=== PATIENT | female | born 1965 | race Caucasian/White ===

== ENCOUNTER 2016-09-23 19:42 | Emergency (ER) | payer MEDICAID ==
[~2016-09-23] VITALS: Ht 162.6 cm; Wt 87.1 kg
[2016-09-23 19:42] VITALS: BP_SYST 118
[~2016-09-23 19:42] MED LIST: ATEN-41; ESCI20TA
[2016-09-23] MEDS ORDERED: NACL 0.9% 1,000 ML IV ONE (20:15)
[2016-09-23] MEDS ORDERED: ONDANSETRON HCL 4 MG/2 ML VIAL IVP ONE (20:15)
[2016-09-23] MEDS ORDERED: MORPHINE 2 MG/ML INJ. SYRINGE IVP ONE (20:15)
[2016-09-23 20:39] LABS: BASOPHILS % (AUTO) 0.1 % (0.0-2.0); EOSINOPHILS # (AUTO) 0.4 K/uL (0.0-0.4); EOSINOPHILS % (AUTO) 2.5 % (0.0-4.0); HEMATOCRIT 28.7 % (36-48); HEMOGLOBIN 9.5 g/dL (12.0-16.0); LYMPHOCYTES # (AUTO) 2.2 K/uL (1.0-5.5); LYMPHOCYTES % (AUTO) 13.6 % (20.5-51.5); MEAN CORPUSCULAR HEMOGLOBIN 29 pg (27-31); MEAN CORPUSCULAR HGB CONC 33 % (32-36); MEAN CORPUSCULAR VOLUME 87 fL (79.0-98.0); MONOCYTES # (AUTO) 0.9 K/uL (0.0-1.0); MONOCYTES % (AUTO) 5.6 % (1.7-9.3); NEUTROPHILS # (AUTO) 12.9 K/uL (1.8-7.7); PLATELET COUNT (AUTO) 303 K/uL (130-430); RED BLOOD CELL COUNT(AUTO) 3.31 MIL/uL (4.2-6.2); RED CELL DISTRIBUTION WIDTH 14.7 % (9.0-15.0); WHITE BLOOD COUNT (AUTO) 16.4 K/uL (4.8-10.8)
[2016-09-23 20:49] LABS: CALCIUM 9.1 mg/dL (8.4-11.0); CREATININE 1.15 mg/dL (0.55-1.30); POTASSIUM 3.6 mmol/L (3.5-5.1)
[2016-09-23 20:54] LABS: TOTAL BILIRUBIN 0.5 mg/dL (0.0-1.0); TOTAL PROTEIN, SERUM 8.4 g/dL (6.4-8.3)
[2016-09-23 21:10] LABS: NEUTROPHILS % (AUTO) 78.2 % (40.0-70.0)
[2016-09-23 22:10] VITALS: BP_SYST 118
== END 2016-09-23 22:10 | disposition home or self-care (01) ==
LOC: SED 19:42
DX: K52.9 Noninfective gastroenteritis and colitis, unspecified (principal); R21 Rash and other nonspecific skin eruption; I10 Essential (primary) hypertension; Z79.899 Other long term (current) drug therapy
CPT/HCPCS: 36415; 74176; 80053; 85025; 96361; 96374; 96375; 99285; J2270; J2405; J7030

== ENCOUNTER 2016-10-02 19:16 | Emergency (ER) | payer MEDICAID ==
[~2016-10-02] VITALS: Ht 162.6 cm; Wt 88.0 kg
[2016-10-02 19:22] VITALS: BP_SYST 130
[2016-10-02 19:54] LABS: BILIRUBIN,URINE NEGATIVE (NEGATIVE); BLOOD, URINE 3+ (NEGATIVE); COLOR,URINE YELLOW (YELLOW); GLUCOSE,URINE NEGATIVE (NEGATIVE); KETONES,URINE NEGATIVE (NEGATIVE); LEUKOCYTE ESTERASE ,URINE TRACE (NEGATIVE); NITRITE, URINE NEGATIVE (NEGATIVE); PROTEIN URINE 3+ (NEGATIVE); UROBILINOGEN,URINE 0.2 (0.2-1.0)
--- NOTE | 2016-10-02 20:11 | NUR ---
Called pt to be placed in bed and no answer
[2016-10-02 20:12] LABS: CLARITY/URINE HAZY (CLEAR)
[2016-10-02 20:14] LABS: BACTERIA,URINE FEW /HPF (None Seen); HYALINE CASTS, URINE 0-10 /LPF (None Seen); RBC,URINE NONE SEEN /HPF (0-3)
[2016-10-02 20:15] LABS: MUCUS,URINE None Seen /LPF (None Seen); OTHER CASTS, URINE MIXED CELL CASTS 1+ /LPF (None Seen)
--- NOTE | 2016-10-02 20:47 | NUR ---
Called pt to be placed in bed but no answer
--- NOTE | 2016-10-02 21:01 | NUR ---
Patient left without being seen. Called pt to be placed in bed and no answer.
== END 2016-10-02 21:01 | disposition left against medical advice (07) ==
LOC: SED 19:16
DX: R06.02 Shortness of breath (principal); M79.89 Other specified soft tissue disorders; Z53.21 Procedure and treatment not carried out due to patient leaving prior to being seen by health care provider
CPT/HCPCS: 81000-TC

== ENCOUNTER 2016-10-04 09:23 | Inpatient (IN) | payer MEDICAID ==
[~2016-10-04] VITALS: Ht 160 cm; Wt 88.0 kg
[2016-10-04 09:23] VITALS: BP_SYST 114
[2016-10-04] MEDS ORDERED: NACL 0.9% 1,000 ML IV ONE (09:57)
[2016-10-04] MEDS ORDERED: NS 1000 ML BAG IV ONE (10:00)
[2016-10-04 10:18] LABS: BILIRUBIN,URINE NEGATIVE (NEGATIVE); BLOOD, URINE 3+ (NEGATIVE); CLARITY/URINE CLEAR (CLEAR); COLOR,URINE YELLOW (YELLOW); GLUCOSE,URINE NEGATIVE (NEGATIVE); KETONES,URINE NEGATIVE (NEGATIVE); LEUKOCYTE ESTERASE ,URINE NEGATIVE (NEGATIVE); NITRITE, URINE NEGATIVE (NEGATIVE); PH,URINE 5.5 (5.0-8.0); PROTEIN URINE 1+ (NEGATIVE); UROBILINOGEN,URINE 0.2 (0.2-1.0)
[2016-10-04 10:24] LABS: BACTERIA,URINE FEW /HPF (None Seen); MUCUS,URINE None Seen /LPF (None Seen); WBC,URINE 0-3 /HPF (0-3)
[2016-10-04 10:33] LABS: BASOPHILS % (AUTO) 0.3 % (0.0-2.0); EOSINOPHILS # (AUTO) 0.2 K/uL (0.0-0.4); EOSINOPHILS % (AUTO) 1.2 % (0.0-4.0); HEMATOCRIT 23.8 % (36-48); HEMOGLOBIN 7.7 g/dL (12.0-16.0); LYMPHOCYTES # (AUTO) 2.6 K/uL (1.0-5.5); LYMPHOCYTES % (AUTO) 18.4 % (20.5-51.5); MEAN CORPUSCULAR HEMOGLOBIN 27 pg (27-31); MEAN CORPUSCULAR HGB CONC 32 % (32-36); MEAN CORPUSCULAR VOLUME 84 fL (79.0-98.0); MONOCYTES # (AUTO) 0.7 K/uL (0.0-1.0); NEUTROPHILS # (AUTO) 10.4 K/uL (1.8-7.7); NEUTROPHILS % (AUTO) 75.1 % (40.0-70.0); PLATELET COUNT (AUTO) 523 K/uL (130-430); RED BLOOD CELL COUNT(AUTO) 2.82 MIL/uL (4.2-6.2); RED CELL DISTRIBUTION WIDTH 15.1 % (9.0-15.0); WHITE BLOOD COUNT (AUTO) 13.9 K/uL (4.8-10.8)
[2016-10-04 10:34] LABS: CALCIUM 9.4 mg/dL (8.4-11.0); CREATININE 1.1 mg/dL (0.55-1.30); POTASSIUM 3.7 mmol/L (3.5-5.1)
[2016-10-04 10:38] LABS: ALBUMIN 2.4 g/dL (3.4-4.8); INR 1.1 (0.8-1.2); PHOSPHORUS 4.8 mg/dL (2.7-4.5); PROTHROMBIN TIME 11.4 SECS (9.5-12.5); TOTAL BILIRUBIN 0.4 mg/dL (0.0-1.0)
[2016-10-04 11:10] LABS: FREE T4 (FREE THYROXINE) 1.4 ng/dl (0.8-1.5); THYROID STIMULATING HORMONE 1.67 uIu/mL (0.36-3.74)
[2016-10-04 12:00] LABS: ERYTHROCYTE SEDIMENTATION RATE > 140 MM/HR (0-20)
[2016-10-04] MEDS ORDERED: ATEN-41 PO (12:06)
[2016-10-04] MEDS ORDERED: METR500T PO (12:06)
[2016-10-04] MEDS ORDERED: MESA800T PO (12:06)
[2016-10-04] MEDS ORDERED: FURO-150 PO (12:06)
[2016-10-04] MEDS ORDERED: PRED10TA PO (12:06)
[2016-10-04] MEDS ORDERED: AZU500 PO (12:06)
[2016-10-04] MEDS: NACL 0.9% 1,000 ML IV SCH ×2 (12:08→23:25)
[2016-10-04] MEDS ORDERED: POTASSIUM CHLORIDE 20 MEQ TAB.PRT.SR PO PRN (12:15)
[2016-10-04] MEDS ORDERED: BISACODYL 10 MG/SUPPOSITORY RC PRN (12:15)
[2016-10-04] MEDS ORDERED: LORazepam 2 MG/ML VIAL IVP PRN (12:15)
[2016-10-04] MEDS ORDERED: ONDANSETRON HCL 4 MG/2 ML VIAL IVP PRN (12:15)
[2016-10-04] MEDS ORDERED: ZOLPIDEM TARTRATE 5 MG TABLET PO PRN (12:15)
[2016-10-04] MEDS ORDERED: MORPHINE 2 MG/ML INJ. SYRINGE IVP PRN (12:15)
[2016-10-04] MEDS ORDERED: SIMETHICONE 80 MG TAB.CHEW PO PRN (12:15)
[2016-10-04] MEDS ORDERED: cefTRIAXone 2 GM VIAL ONE (12:28)
[2016-10-04] MEDS ORDERED: FAMOTIDINE PF 20 MG/2 ML VIAL IVP ONE (12:45)
[2016-10-04 12:46] VITALS: BP_SYST 134
[2016-10-04 13:06] VITALS: BP_SYST 134
[2016-10-04] MEDS: ACETAMINOPHEN 325 MG TABLET PO PRN ×2 (14:37→20:16)
[2016-10-04 16:10] VITALS: BP_SYST 122
[2016-10-04] MEDS ORDERED: COMMUNICATION ORDER XX ONE (16:45)
[2016-10-04 20:00] VITALS: BP_SYST 127
[2016-10-04] MEDS: ATENOLOL 25 MG TABLET(TENORMIN) PO SCH (20:15)
[2016-10-04] MEDS: DOCUSATE SODIUM 100 MG CAPSULE PO SCH (20:15)
[2016-10-04] MEDS: MESALAMINE 800 MG PO SCH (20:15)
[2016-10-04] MEDS: sulfASALAZINE 500 MG TABLET (AZULFIDINE) PO SCH (20:16)
[2016-10-05 01:10] VITALS: BP_SYST 131
[2016-10-05] MEDS: ACETAMINOPHEN 325 MG TABLET PO PRN (04:37)
[2016-10-05 05:04] VITALS: BP_SYST 124
[2016-10-05 08:00] VITALS: BP_SYST 114
[2016-10-05 08:03] LABS: CHOLESTEROL 91 mg/dL (<200); HDL CHOLESTEROL 29 mg/dL (>55); LDL CHOLESTEROL 58 mg/dL (<100); TRIGLYCERIDES 58 mg/dL (30-150)
[2016-10-05] MEDS: DOCUSATE SODIUM 100 MG CAPSULE PO SCH ×2 (09:00→20:46)
[2016-10-05] MEDS: FUROSEMIDE 20 MG TABLET PO SCH (09:47)
[2016-10-05] MEDS: PREDNISONE 10 MG TABLET PO SCH (09:48)
[2016-10-05] MEDS: OMEPRAZOLE 20 MG CAPSULE.DR (PriLOSEC) PO SCH (09:48)
[2016-10-05] MEDS: FAMOTIDINE 20 MG TABLET PO SCH (09:48)
[2016-10-05] MEDS: MESALAMINE 800 MG PO SCH ×2 (09:48→20:50)
[2016-10-05] MEDS: sulfASALAZINE 500 MG TABLET (AZULFIDINE) PO SCH ×2 (09:48→20:45)
[2016-10-05] MEDS: ATENOLOL 25 MG TABLET(TENORMIN) PO SCH ×2 (09:49→20:46)
[2016-10-05 11:31] VITALS: BP_SYST 116
[2016-10-05] MEDS: cefTRIAXone 1 GM in D5W 50 ML IV SCH (12:30)
[2016-10-05] MEDS: VANCOMYCIN HCL 750 MG in NS 250 ML IV SCH (15:18)
[2016-10-05] MEDS: NACL 0.9% 1,000 ML IV SCH (15:19)
[2016-10-05 15:41] VITALS: BP_SYST 127
[2016-10-05 19:50] VITALS: BP_SYST 119
[2016-10-06] VITALS (7 sets, daily range): BP systolic 116–138
[2016-10-06] MEDS: VANCOMYCIN HCL 750 MG in NS 250 ML IV SCH ×2 (02:55→16:19)
[2016-10-06 06:45] LABS: BASOPHILS # (AUTO) 0.1 K/uL (0.0-0.2); BASOPHILS % (AUTO) 0.5 % (0.0-2.0); CALCIUM 8.9 mg/dL (8.4-11.0); CREATININE 1.02 mg/dL (0.55-1.30); EOSINOPHILS # (AUTO) 0.2 K/uL (0.0-0.4); EOSINOPHILS % (AUTO) 1.3 % (0.0-4.0); LYMPHOCYTES # (AUTO) 2.8 K/uL (1.0-5.5); LYMPHOCYTES % (AUTO) 23.6 % (20.5-51.5); MEAN CORPUSCULAR HEMOGLOBIN 27 pg (27-31); MEAN CORPUSCULAR HGB CONC 32 % (32-36); MEAN CORPUSCULAR VOLUME 85 fL (79.0-98.0); MONOCYTES # (AUTO) 0.7 K/uL (0.0-1.0); MONOCYTES % (AUTO) 6.4 % (1.7-9.3); NEUTROPHILS # (AUTO) 7.9 K/uL (1.8-7.7); NEUTROPHILS % (AUTO) 68.2 % (40.0-70.0); PHOSPHORUS 4.2 mg/dL (2.7-4.5); PLATELET COUNT (AUTO) 405 K/uL (130-430); POTASSIUM 3.9 mmol/L (3.5-5.1); RED BLOOD CELL COUNT(AUTO) 2.43 MIL/uL (4.2-6.2); RED CELL DISTRIBUTION WIDTH 15.4 % (9.0-15.0); WHITE BLOOD COUNT (AUTO) 11.7 K/uL (4.8-10.8)
[2016-10-06 07:18] LABS: HEMATOCRIT 20.5 % (36-48); HEMOGLOBIN 6.6 g/dL (12.0-16.0)
[2016-10-06] MEDS: FAMOTIDINE 20 MG TABLET PO SCH (08:49)
[2016-10-06] MEDS: DOCUSATE SODIUM 100 MG CAPSULE PO SCH ×2 (08:49→20:40)
[2016-10-06] MEDS: OMEPRAZOLE 20 MG CAPSULE.DR (PriLOSEC) PO SCH (08:50)
[2016-10-06] MEDS: PREDNISONE 10 MG TABLET PO SCH (08:51)
[2016-10-06] MEDS: FUROSEMIDE 20 MG TABLET PO SCH (08:51)
[2016-10-06] MEDS: sulfASALAZINE 500 MG TABLET (AZULFIDINE) PO SCH ×2 (08:52→20:40)
[2016-10-06] MEDS: MESALAMINE 800 MG PO SCH ×2 (08:56→20:40)
[2016-10-06] MEDS: ATENOLOL 25 MG TABLET(TENORMIN) PO SCH ×2 (09:00→21:00)
[2016-10-06 09:26] LABS: TOTAL IRON BIND. CAPACITY 187 ug/dL (250-450)
[2016-10-06] MEDS: cefTRIAXone 1 GM in D5W 50 ML IV SCH (12:19)
[2016-10-06] MEDS: NACL 0.9% 1,000 ML IV SCH (14:08)
[2016-10-06 17:47] LABS: BASOPHILS % (AUTO) 0.2 % (0.0-2.0); EOSINOPHILS % (AUTO) 0.3 % (0.0-4.0); HEMATOCRIT 22.8 % (36-48); HEMOGLOBIN 7.2 g/dL (12.0-16.0); LYMPHOCYTES # (AUTO) 2.1 K/uL (1.0-5.5); LYMPHOCYTES % (AUTO) 16.6 % (20.5-51.5); MEAN CORPUSCULAR HEMOGLOBIN 27 pg (27-31); MEAN CORPUSCULAR HGB CONC 32 % (32-36); MEAN CORPUSCULAR VOLUME 86 fL (79.0-98.0); MONOCYTES # (AUTO) 0.5 K/uL (0.0-1.0); MONOCYTES % (AUTO) 4.2 % (1.7-9.3); NEUTROPHILS # (AUTO) 10.2 K/uL (1.8-7.7); NEUTROPHILS % (AUTO) 78.7 % (40.0-70.0); PLATELET COUNT (AUTO) 481 K/uL (130-430); RED BLOOD CELL COUNT(AUTO) 2.66 MIL/uL (4.2-6.2); RED CELL DISTRIBUTION WIDTH 15.5 % (9.0-15.0); WHITE BLOOD COUNT (AUTO) 12.8 K/uL (4.8-10.8)
[2016-10-06] MEDS: metroNIDAZOLE 500 mg/NS 100 ML IV SCH (22:08)
[2016-10-07] MEDS: VANCOMYCIN HCL 750 MG in NS 250 ML IV SCH (03:24)
[2016-10-07 03:53] VITALS: BP_SYST 133
[2016-10-07] MEDS: metroNIDAZOLE 500 mg/NS 100 ML IV SCH (05:55)
[2016-10-07] MEDS: NACL 0.9% 1,000 ML IV SCH (06:48)
[2016-10-07 07:37] LABS: BASOPHILS % (AUTO) 0.3 % (0.0-2.0); EOSINOPHILS # (AUTO) 0.2 K/uL (0.0-0.4); EOSINOPHILS % (AUTO) 1.5 % (0.0-4.0); HEMATOCRIT 23.9 % (36-48); HEMOGLOBIN 7.6 g/dL (12.0-16.0); LYMPHOCYTES # (AUTO) 2.5 K/uL (1.0-5.5); LYMPHOCYTES % (AUTO) 21.3 % (20.5-51.5); MEAN CORPUSCULAR HEMOGLOBIN 27 pg (27-31); MEAN CORPUSCULAR HGB CONC 32 % (32-36); MEAN CORPUSCULAR VOLUME 84 fL (79.0-98.0); MONOCYTES # (AUTO) 0.6 K/uL (0.0-1.0); NEUTROPHILS # (AUTO) 8.4 K/uL (1.8-7.7); NEUTROPHILS % (AUTO) 71.9 % (40.0-70.0); PLATELET COUNT (AUTO) 398 K/uL (130-430); RED BLOOD CELL COUNT(AUTO) 2.85 MIL/uL (4.2-6.2); RED CELL DISTRIBUTION WIDTH 15.1 % (9.0-15.0); WHITE BLOOD COUNT (AUTO) 11.7 K/uL (4.8-10.8)
[2016-10-07 08:00] VITALS: BP_SYST 115
[2016-10-07 08:01] LABS: CREATININE 1.04 mg/dL (0.55-1.30); POTASSIUM 3.6 mmol/L (3.5-5.1)
[2016-10-07] MEDS: DOCUSATE SODIUM 100 MG CAPSULE PO SCH (08:49)
[2016-10-07] MEDS: sulfASALAZINE 500 MG TABLET (AZULFIDINE) PO SCH (08:49)
[2016-10-07] MEDS: OMEPRAZOLE 20 MG CAPSULE.DR (PriLOSEC) PO SCH (08:49)
[2016-10-07] MEDS: PREDNISONE 10 MG TABLET PO SCH (08:49)
[2016-10-07] MEDS: ATENOLOL 25 MG TABLET(TENORMIN) PO SCH (08:50)
[2016-10-07] MEDS: FUROSEMIDE 20 MG TABLET PO SCH (08:50)
[2016-10-07] MEDS: FAMOTIDINE 20 MG TABLET PO SCH (08:50)
[2016-10-07] MEDS: MESALAMINE 800 MG PO SCH (08:50)
[2016-10-07] MEDS ORDERED: PRED20TA PO (08:59)
[2016-10-07] MEDS ORDERED: CIPR-211 PO (08:59)
[2016-10-07] MEDS ORDERED: METR500T PO (08:59)
[2016-10-07 09:08] LABS: FOLATE (FOLIC ACID) 17.3 ng/mL (>3.0)
[2016-10-07 09:39] VITALS: BP_SYST 115
== END 2016-10-07 10:30 | disposition home or self-care (01) | DRG 245 ==
LOC: SED 09:23 → STU 11:53 → SMU 10-05 22:33
PROVIDERS: ADMIT Family Medicine; ATTEND Family Medicine
PROC: 30233N1 Transfusion of Nonautologous Red Blood Cells into Peripheral Vein, Percutaneous Approach (ICD-10-PCS; principal; 2016-10-07)
DX: K51.90 Ulcerative colitis, unspecified, without complications (principal); G61.0 Guillain-Barre syndrome; N39.0 Urinary tract infection, site not specified; R60.0 Localized edema; D63.8 Anemia in other chronic diseases classified elsewhere; G89.29 Other chronic pain; I10 Essential (primary) hypertension; I77.6 Arteritis, unspecified; J06.9 Acute upper respiratory infection, unspecified; F32.9 Major depressive disorder, single episode, unspecified; M62.81 Muscle weakness (generalized); R21 Rash and other nonspecific skin eruption; R26.81 Unsteadiness on feet; Z79.899 Other long term (current) drug therapy
CPT/HCPCS: 36415; 71010; 80048; 80053; 80061; 81000-TC; 82150-TC; 82272; 82550-TC; 82607; 82728; 82746; 83036; 83540-TC; 83550-TC; 83605; 83690-TC; 83735-TC; 83880; 84100-TC; 84436; 84439; 84443-TC; 84479; 84484; 84703; 85025; 85610-TC; 85651-TC; 85730-TC; 86870; 86886; 86900; 86901; 86920; 87040-TC; 87045-TC; 87081; 87177; 89055; 93005; 96361; 96365; 97110-GP; 97116-GP; 97530-GP; 99285; J0696; J3370; J3490; J7030; J7050; J7060; J7512; P9021

== ENCOUNTER 2017-03-10 22:43 | Emergency (ER) | payer MEDICAID ==
[~2017-03-10] VITALS: Ht 160 cm; Wt 88.5 kg
[~2017-03-10 22:43] MED LIST changes: -ATEN-41; +ATEN-41 PO; +AZU500 PO; +CIPR-211 PO; -ESCI20TA; +FURO-150 PO; +MESA800T PO; +METR500T PO; +PRED20TA PO
[2017-03-10 22:44] VITALS: BP_SYST 158
[2017-03-10] MEDS ORDERED: ALPRAZolam 0.25 MG TABLET PO ONE (23:15)
[2017-03-10] MEDS ORDERED: ASPIRIN 325 MG TABLET PO ONE (23:45)
[2017-03-11 00:05] LABS: BASOPHILS # (AUTO) 0.1 K/uL (0.0-0.2); BASOPHILS % (AUTO) 0.6 % (0.0-2.0); EOSINOPHILS # (AUTO) 0.3 K/uL (0.0-0.4); EOSINOPHILS % (AUTO) 3.7 % (0.0-4.0); HEMOGLOBIN 11.2 g/dL (12.0-16.0); LYMPHOCYTES # (AUTO) 2.2 K/uL (1.0-5.5); MEAN CORPUSCULAR HEMOGLOBIN 30 pg (27-31); MEAN CORPUSCULAR HGB CONC 34 % (32-36); MEAN CORPUSCULAR VOLUME 89 fL (79.0-98.0); MONOCYTES # (AUTO) 0.4 K/uL (0.0-1.0); MONOCYTES % (AUTO) 4.8 % (1.7-9.3); NEUTROPHILS # (AUTO) 6.3 K/uL (1.8-7.7); NEUTROPHILS % (AUTO) 66.9 % (40.0-70.0); PLATELET COUNT (AUTO) 251 K/uL (130-430); RED BLOOD CELL COUNT(AUTO) 3.72 MIL/uL (4.2-6.2); RED CELL DISTRIBUTION WIDTH 14.1 % (9.0-15.0); WHITE BLOOD COUNT (AUTO) 9.3 K/uL (4.8-10.8)
[2017-03-11 00:11] LABS: ALBUMIN 3.2 g/dL (3.4-4.8); CALCIUM 8.9 mg/dL (8.4-11.0); CREATININE 0.9 mg/dL (0.55-1.30); POTASSIUM 3.4 mmol/L (3.5-5.1); TOTAL BILIRUBIN 0.5 mg/dL (0.0-1.0)
[2017-03-11 00:58] VITALS: BP_SYST 158
== END 2017-03-11 00:58 | disposition home or self-care (01) ==
LOC: SED 22:43
DX: F41.9 Anxiety disorder, unspecified (principal); I10 Essential (primary) hypertension; F32.9 Major depressive disorder, single episode, unspecified; Z79.899 Other long term (current) drug therapy
CPT/HCPCS: 36415; 71045; 80053; 84484; 85025; 93005; 99285

== ENCOUNTER 2017-09-20 12:58 | Emergency (ER) | payer MEDICAID ==
[~2017-09-20] VITALS: Ht 160 cm; Wt 88.0 kg
[2017-09-20 13:17] VITALS: BP_SYST 117
[2017-09-20] MEDS ORDERED: DIPH-TET-PERTUS Vaccine 0.5 ML VIAL (ADACEL) I.M. ONE (13:45)
[2017-09-20] MEDS ORDERED: SODIUM BICARBONATE 8.4% VIAL 50 MEQ/50 ML VIAL INJ ONE (15:15)
[2017-09-20] MEDS ORDERED: LIDOCAINE 2%, 20 ML MDV INJ ONE (15:15)
--- NOTE | 2017-09-20 16:25 | NUR ---
Called for patient unable to locate.
--- NOTE | 2017-09-20 16:50 | NUR ---
Called for patient, unable to locate.
--- NOTE | 2017-09-20 17:06 | NUR ---
Called for patient, unable to locate, presumed to have eloped.
== END 2017-09-20 17:05 | disposition left against medical advice (07) ==
LOC: SED 13:00
DX: S61.102A Unspecified open wound of left thumb with damage to nail, initial encounter (principal); I10 Essential (primary) hypertension; Z88.1 Allergy status to other antibiotic agents; Z79.899 Other long term (current) drug therapy; X58.XXXA Exposure to other specified factors, initial encounter; Y93.89 Activity, other specified; Y92.89 Other specified places as the place of occurrence of the external cause; Y99.8 Other external cause status
CPT/HCPCS: 73140-TC; 99284

== ENCOUNTER 2017-10-14 06:55 | Emergency (ER) | payer MEDICAID ==
[~2017-10-14] VITALS: Ht 162.6 cm; Wt 88.0 kg
[2017-10-14 06:55] VITALS: BP_SYST 130
[2017-10-14 09:00] VITALS: BP_SYST 117
== END 2017-10-14 08:32 | disposition home or self-care (01) ==
LOC: SED 06:55
DX: F41.9 Anxiety disorder, unspecified (principal); I10 Essential (primary) hypertension; F32.9 Major depressive disorder, single episode, unspecified; Z79.899 Other long term (current) drug therapy
CPT/HCPCS: 93005; 99284

== ENCOUNTER 2018-07-28 17:43 | Emergency (ER) | payer OTHER, MEDICAID ==
[~2018-07-28] VITALS: Ht 160 cm; Wt 86.2 kg
[2018-07-28 17:46] VITALS: BP_SYST 142
--- NOTE | 2018-07-28 17:50 | NUR ---
Patient to ER bed H1 to gown for evaluation. Side rails up.
--- NOTE | 2018-07-28 17:52 | NUR ---
Pt brought by self,A&Ox4, pt presents to ER with one episode of anxiety prior arrival, skin pink and warm, cap refill <3, respirations even and unlabored,pt denies pain.
--- NOTE | 2018-07-28 17:55 | NUR ---
Dr Patel at bedside examining patient
--- NOTE | 2018-07-28 17:58 | NUR ---
Pt states she feels better, pt denies anxiety , pt requesting to go home.
--- NOTE | 2018-07-28 18:06 | NUR ---
Patient does not wish to proceed with medical care recommended by patient . Patient given information related to possible complications, up to and including , which could occur as a result of leaving hospital at this time. Patient verbalizes understanding of risks involved leaving against medical advice. Patient has signed AMA form.
== END 2018-07-28 18:06 | disposition left against medical advice (07) ==
LOC: SED 17:43
DX: F41.9 Anxiety disorder, unspecified (principal); F32.9 Major depressive disorder, single episode, unspecified; I10 Essential (primary) hypertension; Z79.899 Other long term (current) drug therapy
CPT/HCPCS: 99283

== ENCOUNTER 2018-09-12 17:51 | Emergency (ER) | payer OTHER, MEDICAID ==
[~2018-09-12] VITALS: Ht 160 cm; Wt 89.8 kg
[2018-09-12 17:58] VITALS: BP_SYST 154
--- NOTE | 2018-09-12 18:02 | NUR ---
Patient triaged and placed in waiting room. VSS and patient appears in no acute distress at this time. Accompanied by , awaiting available bed, and MD notified of need for MSE.
--- NOTE | 2018-09-12 18:29 | NUR ---
Patient left without being seen.
== END 2018-09-12 18:29 | disposition left against medical advice (07) ==
LOC: SED 17:51
DX: F41.9 Anxiety disorder, unspecified (principal); R06.02 Shortness of breath; Z53.21 Procedure and treatment not carried out due to patient leaving prior to being seen by health care provider

== ENCOUNTER 2020-05-13 16:47 | Emergency (ER) | payer OTHER, MEDICAID ==
[~2020-05-13] VITALS: Ht 160 cm; Wt 86.2 kg
[~2020-05-13 16:47] MED LIST changes: -AZU500 PO; -CIPR-211 PO; +CIPR500T5 PO; +SULF500T60 PO
[2020-05-13 16:56] VITALS: BP_SYST 145
[2020-05-13] MEDS ORDERED: LORazepam 1 MG TABLET PO ONE (17:00)
[2020-05-13 17:25] LABS: BASOPHILS # (AUTO) 0.1 K/uL (0.0-0.2); BASOPHILS % (AUTO) 0.8 % (0.0-2.0); EOSINOPHILS # (AUTO) 0.2 K/uL (0.0-0.4); HEMATOCRIT 37.2 % (36-48); HEMOGLOBIN 12.3 g/dL (12.0-16.0); LYMPHOCYTES # (AUTO) 2.6 K/uL (1.0-5.5); LYMPHOCYTES % (AUTO) 31.2 % (20.5-51.5); MEAN CORPUSCULAR HEMOGLOBIN 27 pg (27-31); MEAN CORPUSCULAR HGB CONC 33 % (32-36); MEAN CORPUSCULAR VOLUME 82 fL (79.0-98.0); MONOCYTES # (AUTO) 0.4 K/uL (0.0-1.0); MONOCYTES % (AUTO) 4.7 % (1.7-9.3); NEUTROPHILS % (AUTO) 60.3 % (40.0-70.0); PLATELET COUNT (AUTO) 247 K/uL (130-430); RED BLOOD CELL COUNT(AUTO) 4.52 MIL/uL (4.2-6.2); RED CELL DISTRIBUTION WIDTH 15.9 % (9.0-15.0); WHITE BLOOD COUNT (AUTO) 8.3 K/uL (4.8-10.8)
[2020-05-13 17:36] LABS: ANION GAP 10 (5-15); CALCIUM 8.7 mg/dL (8.4-11.0); CHLORIDE 101 mmol/L (98-107); CREATININE 1.13 mg/dL (0.55-1.30); GFR AFRICAN AMERICAN 65 mL/min (>90); GLUCOSE 181 mg/dL (70-99); POTASSIUM 3.6 mmol/L (3.5-5.1); SODIUM SERUM 139 mmol/L (136-145); UREA NITROGEN, BLOOD 15 mg/dL (8-21)
[2020-05-13 17:45] LABS: ALANINE AMINOTRANSFERASE 24 U/L (12-78); ALBUMIN 3.3 g/dL (3.4-4.8); ASPARTATE AMINOTRANSFERASE 19 U/L (10-37); TOTAL BILIRUBIN 0.3 mg/dL (0.0-1.0)
[2020-05-13 18:40] VITALS: BP_SYST 145
[2020-05-13 18:46] LABS: BILIRUBIN,URINE NEGATIVE (NEGATIVE); BLOOD, URINE NEGATIVE (NEGATIVE); CLARITY/URINE CLEAR (CLEAR); COLOR,URINE YELLOW (YELLOW); GLUCOSE,URINE NEGATIVE (NEGATIVE); KETONES,URINE NEGATIVE (NEGATIVE); LEUKOCYTE ESTERASE ,URINE TRACE (NEGATIVE); NITRITE, URINE NEGATIVE (NEGATIVE); PH,URINE 7.5 (5.0-8.0); PROTEIN URINE TRACE (NEGATIVE); UROBILINOGEN,URINE 0.2 (0.2-1.0)
[2020-05-13 19:05] LABS: BACTERIA,URINE RARE /HPF (None Seen); MUCUS,URINE None Seen /LPF (None Seen); RBC,URINE 0-3 /HPF (0-3)
== END 2020-05-13 18:40 | disposition home or self-care (01) ==
LOC: SED 16:47
DX: R06.02 Shortness of breath (principal); R42 Dizziness and giddiness; R51.9 Headache, unspecified
CPT/HCPCS: 36415; 71045; 80053; 81000-TC; 81025; 84484; 85025; 85379; 87086; 93005; 99285

== ENCOUNTER 2021-12-17 22:58 | Emergency (ER) | payer OTHER, MEDICAID ==
[~2021-12-17] VITALS: Ht 162.6 cm; Wt 89.8 kg
[2021-12-17 23:18] VITALS: BP_SYST 141
[2021-12-17] MEDS ORDERED: IBUPROFEN 800 MG TABLET PO ONE (23:45)
[2021-12-17] MEDS ORDERED: ONDANSETRON 4 MG ODT TAB PO ONE (23:45)
--- NOTE | 2021-12-17 23:50 | NUR ---
ER at bedside examining patient.
--- NOTE | 2021-12-18 00:25 | NUR ---
Patient to ER bed 6 to gown for evaluation. Side rails up. Report given to Mari BARRY.
[2021-12-18] MEDS ORDERED: ONDA-8 TL (00:35)
--- NOTE | 2021-12-18 00:44 | NUR ---
Patient given written and verbal discharge instructions and verbalizes understanding. ER MD discussed with patient the results and treatment provided. Patient in stable condition. ID arm band removed. Rx of Zofran given. Patient educated on pain management and to follow up with PMD. Pain Scale 0/10. Opportunity for questions provided and answered. Medication side effect fact sheet provided.
[2021-12-18 00:46] VITALS: BP_SYST 154
== END 2021-12-18 00:45 | disposition home or self-care (01) ==
LOC: SED 22:58
DX: R06.02 Shortness of breath (principal); T50.B95A Adverse effect of other viral vaccines, initial encounter; R11.0 Nausea; I10 Essential (primary) hypertension; Z79.899 Other long term (current) drug therapy; Z20.822 Contact with and (suspected) exposure to COVID-19
CPT/HCPCS: 99283; 87426; 36415; 87804 ×2; Q0162

== ENCOUNTER 2022-09-30 23:16 | Emergency (ER) | payer OTHER, MEDICAID ==
[~2022-09-30] VITALS: Ht 162.6 cm; Wt 88.5 kg
[~2022-09-30 23:16] MED LIST changes: +ONDA-8 TL
[2022-09-30 23:21] VITALS: BP_SYST 174; PULSE 88; RESP 18; TEMP 97.2; O2SAT 100
[2022-09-30 23:59] LABS: BASOPHILS # (AUTO) 0.1 K/uL (0.0-0.2); BASOPHILS % (AUTO) 0.5 % (0.0-2.0); EOSINOPHILS # (AUTO) 0.4 K/uL (0.0-0.4); EOSINOPHILS % (AUTO) 3.4 % (0.0-4.0); HEMATOCRIT 36.1 % (36-48); HEMOGLOBIN 11.4 g/dL (12.0-16.0); LYMPHOCYTES # (AUTO) 3.6 K/uL (1.0-5.5); LYMPHOCYTES % (AUTO) 34.3 % (20.5-51.5); MEAN CORPUSCULAR HEMOGLOBIN 26 pg (27-31); MEAN CORPUSCULAR HGB CONC 32 % (32-36); MEAN CORPUSCULAR VOLUME 81 fL (79.0-98.0); MONOCYTES # (AUTO) 0.6 K/uL (0.0-1.0); MONOCYTES % (AUTO) 5.8 % (1.7-9.3); NEUTROPHILS # (AUTO) 5.9 K/uL (1.8-7.7); PLATELET COUNT (AUTO) 253 K/uL (130-430); RED BLOOD CELL COUNT(AUTO) 4.47 MIL/uL (4.2-6.2); RED CELL DISTRIBUTION WIDTH 15.8 % (9.0-15.0); WHITE BLOOD COUNT (AUTO) 10.5 K/uL (4.8-10.8)
[2022-10-01 00:15] LABS: ANION GAP 10 (5-15); CALCIUM 8.4 mg/dL (8.4-11.0); CARBON DIOXIDE 28 mmol/L (23-29); CHLORIDE 102 mmol/L (98-107); CREATININE 0.98 mg/dL (0.55-1.30); GFR AFRICAN AMERICAN 76 mL/min (>90); GLUCOSE 131 mg/dL (74-106); POTASSIUM 3.5 mmol/L (3.5-5.1); SODIUM SERUM 140 mmol/L (136-145); UREA NITROGEN, BLOOD 20 mg/dL (8-21)
[2022-10-01 00:17] LABS: GFR NON AFRICAN-AMERICAN 63 mL/min (>90)
[2022-10-01 00:22] LABS: ALANINE AMINOTRANSFERASE 14 U/L (12-78); ALBUMIN 2.9 g/dL (3.4-4.8); ASPARTATE AMINOTRANSFERASE 14 U/L (10-37); TOTAL BILIRUBIN 0.3 mg/dL (0.0-1.0); TOTAL PROTEIN, SERUM 7.9 g/dL (6.4-8.3)
[2022-10-01] MEDS ORDERED: LORazepam 1 MG TABLET PO ONE (01:00)
[2022-10-01 01:50] VITALS: BP_SYST 139; PULSE 79; RESP 18; TEMP 97.2; O2SAT 100
== END 2022-10-01 01:49 | disposition left against medical advice (07) ==
LOC: SED 23:16
DX: R07.9 Chest pain, unspecified (principal); R06.02 Shortness of breath; I10 Essential (primary) hypertension; Z79.899 Other long term (current) drug therapy
CPT/HCPCS: 36415; 71045; 80053; 84484; 85025; 93005; 99285